=== PATIENT | male | born 1970 | race Caucasian/White ===

== ENCOUNTER 2020-12-02 14:38 | Outpatient (CLI) | payer MEDICARE, SELFPAY ==
--- NOTE | ~2020-12-02 | XR_ITS ---
EXAMINATION: XR knee LT min 4V, XR knee RT min 4V DATE: 12/02/2020 15:31 INDICATION: Chronic worsening bilateral knee pain TECHNIQUE: 1. Weight bearing anteroposterior and [place], sunrise, and flexed lateral views of the left knee w ere obtained. 2. Weight bearing anteroposterior and [place], sunrise, and flexed lateral views of the right knee were obtained. COMPARISON: 12/15/2016 FINDINGS: Bilateral genu varum with severe joint space narrowing and the medial compartments of both knees. Mar ginal osteophytes are seen in the lateral and patellofemoral compartments of both knees. In addition there is a small central subchondral osteophyte at the left trochlear groove. No fracture. Small to m oderate-sized bilateral knee joint effusions. IMPRESSION: 1. 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 2. Small to moderate sized bilateral knee joint effusions. Reviewed, dictated and finalized at location A. IMPRESSION: 1. Tricompartmental osteoarthritis, severe in the medial compartments of both k nees with secondary mild bilateral genu varum. 2. Small to moderate sized bilateral knee joint effusions.
== END 2020-12-02 14:39 ==
PROVIDERS: Visit Provider Nurse Practitioner Adult Health
DX: M17.0 Bilateral primary osteoarthritis of knee (principal); M25.461 Effusion, right knee; M25.462 Effusion, left knee
CPT/HCPCS: 73564